=== PATIENT | female | born 2000 | race Two or more races ===

== ENCOUNTER 2025-01-23 15:18 | Inpatient (IN) | payer OTHER ==
[~2025-01-23] VITALS: Ht 160 cm; Wt 62.0 kg
--- NOTE | 2025-01-23 15:27 | ED.PDOC ---
GI ASSESSMENT HPI Comments 25-year-old female brought in from [facility] presents with a chief complaint of abdominal pain x onset Monday (2 days ago). Patient mentions that she started her cycle and thought that the cramps were from that, however, the cramps felt different and were stronger. Patient had a CT scan of her abdomen at [facility] and was confirmed to have Appendicitis. Patient was given Zofran, Morphine, Toradol, Tylenol per transport team. Patient did not receive Cipro per transport team. PMHx: Ovarian Cysts PSHx: None HPI: Poor Historian. REVIEW OF SYSTEMS: CONSTITUTIONAL: Denies acute: fever, diaphoresis, chills, HEAD: Denies acute: headache, photophobia Eyes: Denies acute: Double vision, vision loss, eye pain, eye discharge. EARS: Denies acute: tinnitus, hearing loss, ear discharge, ear pain, THROAT: Denies acute: sore throat, swelling, difficulty swallowing , pain with swallowing, change in voice. NECK: Denies acute: neck pain, neck swelling, stiff neck. HEART: Denies acute : chest pain, palpitations, LUNGS: Denies acute: SOB, wheezing, cough, hemoptysis ABDOMEN: Denies acute: diarrhea, melena , hematemesis, hematochezia SKIN: Denies acute: rash, redness, lesions, itchiness. EXTREMITIES: Denies acute: calf pain, numbness, tingling, weakness, denies pain in extremity. Denies acute: Low back pain. Neuro: Denies acute: focal neurological deficit, motor or sensory focal neurological deficit, tremors, seizure like activity, confusion, dizziness, change in mental status, loss of bowel or bladder function, cauda equina like symptoms. : Denies acute: dysuria, hematuria, flank pain, increase in urinary frequency. PSYCH: Denies acute: hallucination, suicidal ideation, homicidal ideation. FEMALE: Denies acute: abnormal vaginal bleeding, foul odor, unusual discharge. Currently on her menstrual cycle PHYSICAL EXAM: General: ----[id number]----acute distress, awake and alert. Head: normocephalic, atraumatic. Neck: supple, trachea is midline, no swelling. Throat: Normal phonation. Eyes:, no erythema, no purulent discharge, no proptosis, no icterus. Heart: regular rate, regular rhythm, no significant murmur appreciated. Lungs: no apparent respiratory distress, Able to speak in full sentences. No wheezing, no rhonchi, no crackles. No stridors Clear to auscultation bilaterally. Abdomen: Periumbilical tender to palpation, non distended, soft, no guarding, no rebound, + bowel sounds. Neuro: Awake, Alert, oriented to name, self, situation, follows commands GCS=15. Speech is normal. Skin: no petechia, no purpura, no cyanosis, non-pale, not jaundice. Lower extremities: --no - Pitting edema no deformity, no focal swelling, no calf TTP. Makes eye contact. moves all four extremities. Face: no apparent facial droop. ED COURSE: DISCLAIMER: This medical document was created using an electronic medical record system with voice recognition software and computerized dictation system. Although this document has been carefully reviewed, there might still be some phonetic and typographical errors. Occasional wrong-word or "sound-alike" substitutions may have occurred due to the inherent limitations of voice recognition software. These areas are purely typographical due to imperfections of the software pr ograms and do not reflect any compromise in the patient's medical care. Please read the chart carefully and recognize, using context, where these substitutions have occurred. Time Seen by MD: 15:18 Reviewed Notes: Medications, Allergies Allergies: Coded Allergies: Amoxicillin (Verified Allergy, Unknown, 01/23/25) Penicillins (Verified Allergy, Unknown, 01/23/25) Home Meds No Active Prescriptions or Reported Meds Information Source: Patient, Emergency Med Personnel Past Medical History Past Medical History (Other): Ovarian Cyst Surgical History: Denies all surgeries FIRER TUNNEL KILN History: Denies all FIRER TUNNEL KILN Hx Family History Family History: Reviewed,noncontributory to illness Social History Smoker: Non-Smoker Alcohol: Denies ETOH Use Drugs: Denies Drug Use Lives In: Home Was a procedure done? Was a procedure done?: No GI differential Dx Differential Diagnosis: Other (DDX include Diverticulitis, colitis, gastroenteritis, acute abdomen, SBO, enteritis, constipation, volvulus, appendicitis, Gallbladder disease, choledocolithiasis, ascending cholangitis, pancreatitis, intraAbdominal mass/neoplasm, hepatitis, UTI, pylonephritis, kidne y stone, aneurysm, dissection, Inflammatory bowel disease, gastroparesis, ischemic bowel, ovarian torsion, ovarian cyst/mass, tubo-ovarian abscess, , ectopic , PID, STD.) X-Ray, Labs, Meds, VS Vital Signs Date Time Temp Pulse Resp B/P (MAP) Pulse Ox O2 Delivery O2 Flow Rate FiO2 01/23/25 16:30 79 16 97/64 (75) 99 01/23/25 16:00 98.9 92 16 100/58 (72) 99 98.9 01/23/25 15:18 98.5 98 16 102/68 (79) 100 98.5 Lab Test 01/23/25 15:44 Range/Units White Blood Count 7.8 4.4-10.8 10^3/uL Red Blood Count 3.78 L 4.0-5.20 10^6/uL Hemoglobin 11.8 L 12.2-16.2 g/dL Hematocrit 34.4 L 36.0-46.0 % Mean Corpuscular Volume 91.0 80.0-100.0 fL Mean Corpuscular Hemoglobin 31.2 28.0-32.0 pg Mean Corpuscular Hemoglobin Concent 34.2 32.0-36.0 g/dL Red Cell Distribution Width 14.0 11.8-14.3 % Platelet Count 302 140-450 10^3/uL Mean Platelet Volume 8.2 6.9-10.8 fL Neutrophils (%) (Auto) 72.8 37.0-80.0 % Lymphocytes (%) (Auto) 16.5 10.0-50.0 % Monocytes (%) (Auto) 9.8 0.0-12.0 % Eosinophils (%) (Auto) 0.7 0.0-7.0 % Basophils (%) (Auto) 0.2 0.0-2.0 % Neutrophils # (Auto) 5.7 1.6-8.6 10 ^3/uL Lymphocytes # (Auto) 1.3 0.4-5.4 10 ^3/uL Monocytes # (Auto) 0.8 0-1.3 10 ^3/uL Eosinophils # (Auto) 0.1 0-0.8 10 ^3/uL Basophils # (Auto) 0 0-0.2 10 ^3/uL Nucleated Red Blood Cells 0.0 % Prothrombin Time 12.1 H 9.3-11.8 sec Prothrombin Time INR 1.16 H 0.9-1.15 Activated Partial Thromboplast Time 32.2 24.5-34.5 SEC Sodium Level 140 136-145 mmol/L Potassium Level 3.7 3.5-5.1 mmol/L Chloride Level 108 H 98-107 mmol/L Carbon Dioxide Level 18 L 20-31 mmol/L Anion Gap 14 5-15 Blood Urea Nitrogen 6 L 9-23 mg/dL Creatinine 0.80 0.550-1.02 mg/dL Glomerular Filtration Rate Calc 105 >90 mL/min BUN/Creatinine Ratio 7.5 L 10.0-20.0 Serum Glucose 58 L 74-106 mg/dL Lactic Acid Level 0.8 0.4-2.0 mmol/L Calcium Level 8.5 L 8.7-10.4 mg/dL Total Bilirubin 0.4 0.2-1.0 mg/dL Aspartate Amino Transferase (AST) 22 13-40 U/L Alanine Aminotransferase (ALT) 9 7-40 U/L Alkaline Phosphatase 51 46-116 U/L Total Protein 6.8 5.7-8.2 g/dL Albumin 4.4 3.2-4.8 g/dL Lipase 24 12-53 U/L [place] [id number] Ph: [phone] DIAGNOSTIC IMAGING Diagnostic Imaging Report : [id number] Signed PATIENT: BRANDI MARTINEZ: [id number] UNIT: [id number] : 2000 [facility]GE / SEX: 25 / F ADM STATUS: ADM IN SERVICE 1711 ORDERING PHYSICIAN: GREGORIO HAYES PROCEDURE(s): CXR1 - CHEST XRAY 1 VIEW REASON: preop ORDER NUMBER(s): [id number], ACCESSION NUMBER(s): [id number] CHEST RADIOGRAPH Indication: preop Technique: Single frontal view of the chest was obtained Comparison: None FINDINGS: Lines and Tubes: None Lungs: No focal consolidation. Pleura: No effusion. No pneumothorax. Cardiomediastinal contours: Unremarkable Bones: No acute osseous abnormality. IMPRESSION: 1. No acute cardiopulmonary disease. ATED BY: JONATHAN MASSEY Jr., DO DICTATED DATE/TIME: 01/23/251745 SIGNED BY: JONATHAN MASSEY Jr., SIGNED DATE/TIME: 01/23/251745 Time of 1ST Reevaluation: 15:48 Reevaluation 1ST: Unchanged Patient Education/Counseling: Diagnosis, Treatment Family Education/Counseling: No Family Present Comments MDM: patient presented with the above HPI.--abdominal pain---workup was initiated. patient was found with the above mentioned diagnosis. the following medications were ordered: please refer to order lists of meds and tests obtained by myself Dr. Varela. Patient ED course and VS have been stabilized. Patient has been reassessed in the ED and remained in a stable condition. Pertinent incidental findings were discussed with the patient and/or family. Patient/family voices understanding and is agreeable with plan. Patient has been observed in the ED adequate length of time to insure improvement/stability. Escalation of care considered: Consideration of escalation to observation or admission Patient was transferred with the acute appendicitis diagnosis. Patient was found with episode of hypoglycemia. Patient was given dextrose. Patient was ADMITTED to the medicine team for further evaluation and treatment of their presentation. There are multiple orders under my name which I did NOT give such as hydromorphone, phenylephrine, ephedrine, propofol, lidocaine 2%, midazolam, All the reports of any imaging studies that were ordered by myself were reviewed by myself. Departure 1 Departure Time of Disposition: 15:44 Impression: Primary Impression: Acute appendicitis Additional Impression: Hypoglycemia Disposition: ADMITTED INPATIENT Admit to: Tele Condition: Guarded e-Prescriptions No Active Prescriptions or Reported Meds Discharged With: Self Critical Care Note Critical Care Time?: No I personally scribed for BERNABE VARELA DO ([email or web address]) on 01/23/25 at 15:26. Electronically submitted by Kailash Bird ([email or web address]). I personally scribed for BERNABE VARELA DO ([email or web address]) on 01/23/25 at 18:37. Electronically submitted by Kailash Bird ([email or web address]). BERNABE VARELA DO Jan 23, 2025 15:26
[2025-01-23] MEDS: fentaNYL CITRATE 100 MCG/2 ML VL IV ONE ×2 (15:30→16:54)
[2025-01-23 15:57] LABS: Hematocrit 34.4 % (36.0-46.0); Hemoglobin 11.8 g/dL (12.2-16.2); Mean Corpuscular Hemoglobin 31.2 pg (28.0-32.0); Mean Corpuscular Volume 91.0 fL (80.0-100.0); Nucleated Red Blood Cells % 0.0 %
[2025-01-23 16:11] LABS: Albumin 4.4 g/dL (3.2-4.8); Alkaline Phosphatase 51 U/L (46-116); Anion Gap 14 (5-15); BUN/Creatinine Ratio 7.5 (10.0-20.0); Blood Urea Nitrogen 6 mg/dL (9-23); Carbon Dioxide 18 mmol/L (20-31); Chloride 108 mmol/L (98-107); Glucose 58 mg/dL (74-106); Lipase 24 U/L (12-53); Potassium 3.7 mmol/L (3.5-5.1); Sodium 140 mmol/L (136-145); Total Protein 6.8 g/dL (5.7-8.2)
[2025-01-23 16:12] LABS: Alanine Aminotransferase 9 U/L (7-40); Bilirubin, Total 0.4 mg/dL (0.2-1.0); Calcium 8.5 mg/dL (8.7-10.4)
[2025-01-23] MEDS: SODIUM CHLORIDE 0.9% 1,000 ML IV ONE ×2 (16:44→17:28)
[2025-01-23] MEDS: CIPROFLOXACIN 400MG/200ML 200 ML IV ONE (16:44)
[2025-01-23] MEDS: ONDANSETRON HCL 4 MG/2 ML VIAL IV ONE (16:44)
[2025-01-23] MEDS: DEXTROSE (25%) 10 ML SYRG IV ONE (17:00)
--- NOTE | 2025-01-23 17:20 | DVHHP2 ---
History of Present Illness Reason for Visit: Abdominal pain History of Present Illness 25-year-old female presents for evaluation of abdominal pain. Patient was transferred from [facility] after she presented there with a two day history of abdominal pain which starts in her center abdomen and radiates to her right lower quadrant. CT of the abdomen from outside facility showed acute appendicitis therefore she was transferred for higher level of care and surgical consultation. She also reports episodes of nausea with vomiting and headache. Of fever or chills. No other acute complaints. Past Medical History Denies Past Surgical History Denies Family History Noncontributory Smoke: No ALCOHOL: none Drugs: None Review of Systems Review of Systems Review of systems are currently negative otherwise addressed in HPI. Allergies: Coded Allergies: Amoxicillin (Verified Allergy, Unknown, 01/23/25) Penicillins (Verified Allergy, Unknown, 01/23/25) Exam Vital Signs Vital Signs Date Time Temp Pulse Resp B/P (MAP) Pulse Ox O2 Delivery O2 Flow Rate FiO2 01/23/25 16:54 96/55 01/23/25 15:18 98.5 98 16 100 98.5 Exam Gen: 25-year-old female in mild distress Skin: Warm, dry, normal color and texture, no rash. HEENT: Normocephalic atraumatic, mucous membranes moist and pink. Neck: Cervical and supraclavicular nodes normal without enlargement, trachea is midline, thyroid gland is normal without masses. Pulmonary: Clear to auscultation and percussion bilaterally. Cardiac: Regular rate and rhythm. No murmur Abdomen: Soft, right lower quadrant tenderness, nondistended, bowel sounds present all 4 quadrants, no guarding, no rigidity, no organomegaly. Extremities: No cyanosis, clubbing, no edema Neuro: Cranial nerves II through XII grossly intact, normal affect and speech, no focal motor deficits. Labs/Xrays Labs Test 01/23/25 15:44 Range/Units White Blood Count 7.8 4.4-10.8 10^3/uL Red Blood Count 3.78 L 4.0-5.20 10^6/uL Hemoglobin 11.8 L 12.2-16.2 g/dL Hematocrit 34.4 L 36.0-46.0 % Mean Corpuscular Volume 91.0 80.0-100.0 fL Mean Corpuscular Hemoglobin 31.2 28.0-32.0 pg Mean Corpuscular Hemoglobin Concent 34.2 32.0-36.0 g/dL Red Cell Distribution Width 14.0 11.8-14.3 % Platelet Count 302 140-450 10^3/uL Mean Platelet Volume 8.2 6.9-10.8 fL Neutrophils (%) (Auto) 72.8 37.0-80.0 % Lymphocytes (%) (Auto) 16.5 10.0-50.0 % Monocytes (%) (Auto) 9.8 0.0-12.0 % Eosinophils (%) (Auto) 0.7 0.0-7.0 % Basophils (%) (Auto) 0.2 0.0-2.0 % Neutrophils # (Auto) 5.7 1.6-8.6 10 ^3/uL Lymphocytes # (Auto) 1.3 0.4-5.4 10 ^3/uL Monocytes # (Auto) 0.8 0-1.3 10 ^3/uL Eosinophils # (Auto) 0.1 0-0.8 10 ^3/uL Basophils # (Auto) 0 0-0.2 10 ^3/uL Nucleated Red Blood Cells 0.0 % Sodium Level 140 136-145 mmol/L Potassium Level 3.7 3.5-5.1 mmol/L Chloride Level 108 H 98-107 mmol/L Carbon Dioxide Level 18 L 20-31 mmol/L Anion Gap 14 5-15 Blood Urea Nitrogen 6 L 9-23 mg/dL Creatinine 0.80 0.550-1.02 mg/dL Glomerular Filtration Rate Calc 105 >90 mL/min BUN/Creatinine Ratio 7.5 L 10.0-20.0 Serum Glucose 58 L 74-106 mg/dL Lactic Acid Level 0.8 0.4-2.0 mmol/L Calcium Level 8.5 L 8.7-10.4 mg/dL Total Bilirubin 0.4 0.2-1.0 mg/dL Aspartate Amino Transferase (AST) 22 13-40 U/L Alanine Aminotransferase (ALT) 9 7-40 U/L Alkaline Phosphatase 51 46-116 U/L Total Protein 6.8 5.7-8.2 g/dL Albumin 4.4 3.2-4.8 g/dL Lipase 24 12-53 U/L SEPSIS Sepsis Screen Date sepsis recognized/suspect: Jan 23, 2025 Time Sepsis recognized/suspect: 1518 Recent Procedure: No On Antibiotic Therapy: Yes Respiratory Rate >20: No Heart Rate >90: Yes Temp<36 C (96.8 F) or >38.3 C: No SBP <90 or MAP <65 mmHG: No New Acute Mental Status Change: No Is the patient on CPAP, BIPAP,: No Physician Orders Evp Operations (01/23/25 ) Electrocardigram (01/23/25 15:22) * Surgical Consult (01/23/25 ) Admit (01/23/25 16:41) Levofloxacin Levaquin (01/24/25 10:00) Metronidazole Ivpb Flagyl (01/23/25 22:00) NS (01/23/25 17:15) Pantoprazole (Protonix) (01/24/25 10:00) Pantoprazole (Protonix) (01/23/25 17:15) PTPTT (01/23/25 17:11) Type And Screen (01/23/25 17:11) Chest Xray 1 View (01/23/25 17:11) Basic Metabolic Panel (01/24/25 04:00) Ondansetron Hcl (Zofran) (01/23/25 17:15) Complete Blood Count (01/24/25 04:00) Npo (Nothing By Mouth) Diet (01/23/25 Dinner) Condition: Stable (01/23/25 17:11) Bedrest With Bathroom Privileg (01/23/25 17:11) Morphine Sulfate Injection (01/23/25 17:15) Vital Signs Date Time Temp Pulse Resp B/P (MAP) Pulse Ox O2 Delivery O2 Flow Rate FiO2 01/23/25 16:54 96/55 01/23/25 15:18 98.5 98 16 102/68 (79) 100 98.5 Laboratory Tests Test 01/23/25 15:44 Lactic Acid Level 0.8 mmol/L (0.4-2.0) White Blood Count 7.8 10^3/uL (4.4-10.8) Medications Medications Dose Ordered Sig/Ildefonso Route Start Time Stop Time Status Last Admin Dose Admin Ciprofloxacin 200 ml @ 200 mls/hr ONCE ONCE IV 01/23/25 15:30 01/23/25 16:29 DC 01/23/25 16:44 200 MLS/HR Dextrose 10 ml ONCE ONCE IV 01/23/25 16:45 01/23/25 16:46 DC 01/23/25 17:00 10 ML Ondansetron HCl 4 mg ONCE ONCE IV 01/23/25 16:15 01/23/25 16:16 DC 01/23/25 16:44 4 MG Sodium Chloride 1,000 ml @ 1,000 mls/hr Q1H ONCE IV 01/23/25 15:30 01/23/25 16:29 DC 01/23/25 16:44 1,000 MLS/HR Assessment/Plan Assessment/Plan Assessment Acute abdominal pain Acute appendicitis Plan Admit the patient to [facility] to the hospitalist Surgical consultation placed by ER provider awaiting callback NPO Maintenance IV fluids Pain management Continue treatment per orders. Plan discussed with: Patient My Orders Orders - GREGORIO HAYES Procedure Category Date Status Time Admit ADMIT 01/23/25 Transmitted 16:41 Levofloxacin Levaquin PHA 01/24/25 Transmitted 10:00 Metronidazole Ivpb PHA 01/23/25 Transmitted Flagyl 22:00 NS PHA 01/23/25 Transmitted 17:15 Pantoprazole PHA 01/24/25 Transmitted (Protonix) 10:00 Pantoprazole PHA 01/23/25 Transmitted (Protonix) 17:15 PTPTT LAB 01/23/25 Transmitted 17:11 Type And Screen BBK 01/23/25 Transmitted 17:11 Chest Xray 1 View XY 01/23/25 Transmitted 17:11 Basic Metabolic Panel LAB 01/24/25 Verified 04:00 Ondansetron Hcl PHA 01/23/25 Transmitted (Zofran) 17:15 Complete Blood Count LAB 01/24/25 Verified 04:00 Npo (Nothing By DIET 01/23/25 Transmitted Mouth) Diet Dinner Condition: Stable GARCIA 01/23/25 In Process 17:11 Bedrest With Bathroom GARCIA 01/23/25 In Process Privileg 17:11 Morphine Sulfate PHA 01/23/25 Transmitted Injection 17:15 Date of Service: Jan 23, 2025 Billing Provider: GREGORIO HAYES Common Visit Codes: [id number] INP/OBS CARE (HIGH) GREGORIO HAYES Jan 23, 2025 17:20
[2025-01-23] MEDS: PANTOPRAZOLE 40 MG/10 ML VIAL INJ IV ONE (17:29)
[2025-01-23] MEDS: DEXTROSE (50%) 50ML SYRG IV ONE (17:39)
--- NOTE | 2025-01-23 17:48 | DVH ---
CHEST RADIOGRAPH Indication: preop Technique: Single frontal view of the chest was obtained Comparison: None FINDINGS: Lines and Tubes: None Lungs: No focal consolidation. Pleura: No effusion. No pneumothorax. Cardiomediastinal contours: Unremarkable Bones: No acute osseous abnormality. IMPRESSION: 1. No acute cardiopulmonary disease.
[2025-01-23 17:52] LABS: INR 1.16 (0.9-1.15); Partial Thromboplastin Time 32.2 SEC (24.5-34.5); Prothrombin Time 12.1 sec (9.3-11.8)
[2025-01-23 19:08] VITALS: PULSE 85; RESP 16; O2SAT 99
[2025-01-23 20:22] LABS: Urine Protein, UAD TRACE (Negative)
[2025-01-23 20:48] VITALS: PULSE 61; RESP 18; O2SAT 99
[2025-01-23] MEDS: MORPHINE SULFATE INJ 2 MG/ml SYRG IV PRN (22:07)
[2025-01-23 22:25] VITALS: BP 114/69; PULSE 74; RESP 16; TEMP 98; O2SAT 98
[2025-01-24] VITALS (8 sets, daily range): BP systolic 94–111; BP diastolic 57–76; PULSE 82–99; RESP 16–19; TEMP 97.6–99; O2SAT 97–100
[2025-01-24 06:52] LABS: Hematocrit 30.0 % (36.0-46.0); Hemoglobin 10.3 g/dL (12.2-16.2); Mean Corpuscular Hemoglobin 30.9 pg (28.0-32.0); Mean Corpuscular Volume 90.2 fL (80.0-100.0); Nucleated Red Blood Cells % 0.0 %
[2025-01-24 06:53] LABS: Anion Gap 12 (5-15); Potassium 3.9 mmol/L (3.5-5.1); Sodium 140 mmol/L (136-145)
[2025-01-24 06:54] LABS: Carbon Dioxide 19 mmol/L (20-31); Chloride 109 mmol/L (98-107)
[2025-01-24 06:55] LABS: Calcium 8.6 mg/dL (8.7-10.4)
[2025-01-24 07:00] LABS: BUN/Creatinine Ratio 5.8 (10.0-20.0); Blood Urea Nitrogen < 5 mg/dL (9-23); Glucose 60 mg/dL (74-106)
[2025-01-24] MEDS ORDERED: IOHEXOL 300 MG/ML 100ML BOTTLE IJ ONE (08:59)
[2025-01-24] MEDS: PANTOPRAZOLE 40 MG/10 ML VIAL INJ IV SCH (10:05)
[2025-01-24] MEDS: ONDANSETRON HCL 4 MG/2 ML VIAL IV PRN (11:51)
[2025-01-24] MEDS ORDERED: MIDAZOLAM HCL 2MG/2ML 2ml VIAL (1mg/ml) ONE (13:07)
[2025-01-24] MEDS ORDERED: ONDANSETRON HCL 4 MG/2 ML VIAL ONE (13:07)
[2025-01-24] MEDS ORDERED: METOCLOPRAMIDE HCL 5MG/ml INJ 2ml VIAL ONE (13:07)
[2025-01-24] MEDS ORDERED: fentaNYL CITRATE 100 MCG/2 ML VL ONE (13:07)
[2025-01-24] MEDS ORDERED: LIDOCAINE 2% (LOCAL ANESTH.) PF 5ml SDV ONE (13:07)
--- NOTE | 2025-01-24 13:07 | DVHINCON2 ---
Date of service: Jan 24, 2025 History of Present Illness 25-year-old otherwise healthy female complaining of two day history of periumbilical pain now radiating to her right lower quadrant with nausea. Patient had a CT of the abdomen and pelvis at an outside facility which showed acute appendicitis and was transferred over to [facility] for further care. Past Medical History None Past Surgical History None Family History: Cardiovascular disease G8 MOTHER G8 FATHER Family History Noncontributory Social History Denies alcohol, tobacco, IV drug use Allergies: Coded Allergies: Amoxicillin (Verified Allergy, Unknown, 01/23/25) Penicillins (Verified Allergy, Unknown, 01/23/25) Home Meds No Active Prescriptions or Reported Meds Current Medications Current Medications Medications (Trade) Dose Ordered Sig/Ildefonso Route PRN Reason Start Time Stop Time Status Last Admin Levofloxacin/ Dextrose 100 ml @ 100 mls/hr DAILY IV 01/24/25 10:00 01/24/25 10:05 Metronidazole 100 ml @ 100 mls/hr Q8HR IV 01/23/25 22:00 01/24/25 04:59 Pantoprazole Sodium (Protonix) 40 mg DAILY IV 01/24/25 10:00 01/24/25 10:05 Ondansetron HCl (Zofran) 4 mg Q4HP PRN IV NAUSEA / VOMITING 01/23/25 17:15 01/24/25 11:51 Morphine Sulfate 2 mg Q4HPRN PRN IV SEVERE PAIN (7-10 PAIN SCALE) 01/23/25 17:15 01/23/25 22:07 Vital Signs Vital Signs Date Time Temp Pulse Resp B/P (MAP) Pulse Ox O2 Delivery O2 Flow Rate FiO2 01/24/25 13:03 99.0 83 16 94/58 (70) 100 99.0 01/24/25 08:00 Room Air* 0 21 Physical Exam GEN: Age-appropriate female in no acute distress. Alert. HEENT: Normocephalic atraumatic. Moist mucous membranes. Anicteric sclerae. CV: RRR Respiratory: CTAB ABD: Localized right lower quadrant tenderness to palpation with localized guarding. Nondistended. CT of the abdomen and pelvis: Consistent with acute appendicitis Labs/Diagnostic Data Labs Test 01/24/25 05:22 01/23/25 20:07 01/23/25 15:44 Range/Units White Blood Count 6.7 4.4-10.8 10^3/uL Red Blood Count 3.32 L 4.0-5.20 10^6/uL Hemoglobin 10.3 L 12.2-16.2 g/dL Hematocrit 30.0 #L 36.0-46.0 % Mean Corpuscular Volume 90.2 80.0-100.0 fL Mean Corpuscular Hemoglobin 30.9 28.0-32.0 pg Mean Corpuscular Hemoglobin Concent 34.2 32.0-36.0 g/dL Red Cell Distribution Width 13.7 11.8-14.3 % Platelet Count 280 140-450 10^3/uL Mean Platelet Volume 8.3 6.9-10.8 fL Neutrophils (%) (Auto) 66.9 37.0-80.0 % Lymphocytes (%) (Auto) 16.2 10.0-50.0 % Monocytes (%) (Auto) 14.4 H 0.0-12.0 % Eosinophils (%) (Auto) 2.2 0.0-7.0 % Basophils (%) (Auto) 0.3 0.0-2.0 % Neutrophils # (Auto) 4.5 1.6-8.6 10 ^3/uL Lymphocytes # (Auto) 1.1 0.4-5.4 10 ^3/uL Monocytes # (Auto) 1.0 0-1.3 10 ^3/uL Eosinophils # (Auto) 0.1 0-0.8 10 ^3/uL Basophils # (Auto) 0 0-0.2 10 ^3/uL Nucleated Red Blood Cells 0.0 % Sodium Level 140 136-145 mmol/L Potassium Level 3.9 3.5-5.1 mmol/L Chloride Level 109 H 98-107 mmol/L Carbon Dioxide Level 19 L 20-31 mmol/L Anion Gap 12 5-15 Blood Urea Nitrogen < 5 L 9-23 mg/dL Creatinine 0.86 0.550-1.02 mg/dL Glomerular Filtration Rate Calc 96 >90 mL/min BUN/Creatinine Ratio 5.8 L 10.0-20.0 Serum Glucose 60 L 74-106 mg/dL Calcium Level 8.6 L 8.7-10.4 mg/dL Beta HCG, Quantitative < 1.5 L 1.5-4.2 mIU/mL Urine Color Light-yellow Yellow Urine Clarity Clear Clear Urine pH 6.0 5.0-9.0 Urine Specific [place] > 1.050 H 1.001-1.035 Urine Protein Trace H Negative Urine Ketones 4+ H Negative Urine Blood 2+ H Negative /uL Urine Nitrite Negative Negative Urine Bilirubin Negative Negative Urine Urobilinogen Normal Negative mg/dL Urine Leukocyte Esterase Negative Negative /uL Urine RBC <1 0 - 4 /hpf Urine Microscopic WBC 4 0-5 /HPF Urine Squamous Epithelial Cells Few <5 /hpf Urine Bacteria None seen None Seen /hpf Urine Mucus Few None Seen Urine Glucose 1+ H Normal mg/dL Prothrombin Time 12.1 H 9.3-11.8 sec Prothrombin Time INR 1.16 H 0.9-1.15 Activated Partial Thromboplast Time 32.2 24.5-34.5 SEC Lactic Acid Level 0.8 0.4-2.0 mmol/L Total Bilirubin 0.4 0.2-1.0 mg/dL Aspartate Amino Transferase (AST) 22 13-40 U/L Alanine Aminotransferase (ALT) 9 7-40 U/L Alkaline Phosphatase 51 46-116 U/L Total Protein 6.8 5.7-8.2 g/dL Albumin 4.4 3.2-4.8 g/dL Lipase 24 12-53 U/L Assessment 1. Acute appendicitis Plan/Recommendation 1. Laparoscopic appendectomy possible open surgery Informed consent: The surgery and its risks including but not limited to infection, bleeding requiring possible blood transfusion with the risk of hepatitis or HIV infection, possible open surgery, possible cystic duct leak or retained common bile duct stone requiring further intervention such as an ERCP, possible perioperative [place] or stroke were explained to the patient. All questions were answered to her satisfaction. She expressed verbal understanding and wished to proceed with the surgery. Plan discussed with: Patient JUAN PABLO HOPKINS MD Jan 24, 2025 13:07
[2025-01-24] MEDS ORDERED: PROPOFOL 10 MG/ML 20 ML IV ONE (13:08)
[2025-01-24] MEDS ORDERED: PHENYLEPHRINE HCL 10 MG/ML VL ONE (13:24)
[2025-01-24] MEDS: LIDOCAINE W/ EPINEPHRINE 1% 20ML VIAL ONE (13:38)
[2025-01-24] MEDS ORDERED: SUGAMMADEX 200mg/2ml Vial (100MG/ML) IV ONE (13:41)
--- NOTE | 2025-01-24 14:06 | DVHOP2 ---
Operative Report - 2 Report Details Date: 01/24/25 Preop Diagnosis: 1. Acute appendicitis Postop Diagnosis: 1. Acute appendicitis 2. Left hemorrhagic cyst Surgeon: Juan Pablo Gutierres MD Resolution Manager: None Anesthesiologist: Lul Leahy CRNA Anesthesia: General, Local Drains: None Consent: The surgery and its risks including but not limited to infection, bleeding requiring possible blood transfusion with the risk of hepatitis or HIV infection, possible open surgery, possibility that the abdominal pain is caused by different intra-abdominal pathology other than acute appendicitis in which case we will proceed with the appendectomy if it is safe to do so and then treat the problem according to intraoperative findings, possible perioperative NV or stroke were explained to the patient. All questions were answered to her satisfaction. She expressed verbal understanding and wished to proceed with the surgery. Complications: None Estimated Blood Loss: 10 mL Fluids: 800 mL Name of Procedure Performed Laparoscopic appendectomy Procedure Details Procedure Details: After induction of general anesthesia, a Jung catheter was placed by the OR nursing staff. Patient's abdomen was then prepped and draped in standard surgical fashion. A small infraumbilical incision was made and this incision was taken through the abdominal wall down to the fascia which was opened sharply. Peritoneum was then bluntly divided gaining access to the intra- abdominal cavity. Interrupted 0 Vicryl sutures were placed through the fascial incision and using an open technique, Radha trocar was introduced and secured using the Vicryl sutures. Abdomen was insufflated to 15 mmHg and camera was inserted. Visual examination of the intestine under the fascial incision appeared without injury however there was diffuse blood-stained peritoneal cavity in all four quadrants especially in the bilateral lower quadrants suspicious for possible hemorrhagic cyst. A 5 mm bladeless trocar was placed in the left lower quadrant and a 2nd 5 mm bladeless trocar was placed in the suprapubic region both under direct visualization. Examination of the right lower quadrant revealed dilated inflamed appendix without perforation. Minimal dissection was performed to free up the base of the appendix and using a endo stapler base of the appendix and the mesoappendix were stapled and divided without complication. The appendix was then removed from the abdominal cavity using an endo pouch bag and sent off the surgical field. Abdomen was then re- insufflated and staple line was examined which appeared intact without bleeding or leaks. Examination was then turned towards the pelvis the right ovary was identified which appeared normal. Patient had a hemorrhagic cyst of the left ovary without active bleeding. The pelvic area was then well irrigated until f luid was clear. Trocars were then removed under direct visualization as the abdomen was deflated. Additional interrupted 0 Vicryl sutures were placed through the infraumbilical fascial incision and the sutures were tied down closing off the infraumbilical fascia. Surgical sites were irrigated injected with 15 mL of 1% lidocaine with epinephrine. Skin incisions were closed using 4-0 Monocryl sutures in subcuticular fashion. Surgical sites were cleaned and dried and dressings were applied. Sponge, needle, instrument count at the end of the case were reported to be correct by the nursing staff. The patient tolerated procedure well and at the time of dictation she is being awakened from general anesthesia. Specimen: Appendix Condition Stable Disposition Still a Patient JUAN PABLO GUTIERRES MD Jan 24, 2025 14:06
[2025-01-24] MEDS ORDERED: HYDROmorphone HCL 2 MG/ML VL/or syr IV PRN (14:15)
[2025-01-24] MEDS: HYDROmorphone HCL 2 MG/ML VL/or syr ONE (14:35)
--- NOTE | 2025-01-24 15:44 | DVHPN2 ---
Subjective Patient is status post OR. Improving. Some pain with procedure controlling with p.r.n. medications. Reviewed: H&P Changes from previous H/P or p: No Changes General: Per HPI Objective Vitals Vital Signs Date Time Temp Pulse Resp B/P (MAP) Pulse Ox O2 Delivery O2 Flow Rate FiO2 01/24/25 14:55 97 13 126/75 (92) 98 01/24/25 14:03 97.2 97.2 01/24/25 08:00 Room Air* 0 21 Intake/Output Intake and Output 01/24/25 07:00 Intake Total 1400 ml Output Total 500 ml Balance 900 ml Intake Oral 0 ml IV Total 1400 ml Output Urine Total 500 ml Exam GEN: Healthy appearing, well-developed, NAD. HEENT: NC/AT; MMM. CV: RRR, no m/r/g. LUNGS: CTAB, no w/r/c. ABD: Soft, NT/ND, NBS, no masses or organomegaly. Lap appy inches in scars laparoscopic incisions are CDI. EXT: skin Warm, well perfused. no rashes. No clubbing, cyanosis, or edema. NEURO: Ambulating with no limitations. No focal deficits. Medications Current Medications Medications Dose Ordered Sig/Ildefonso Route Start Time Stop Time Status Last Admin Dose Admin Levofloxacin/ Dextrose 100 ml @ 100 mls/hr DAILY IV 01/24/25 10:00 01/24/25 10:05 100 MLS/HR Metronidazole 100 ml @ 100 mls/hr Q8HR IV 01/23/25 22:00 01/24/25 04:59 100 MLS/HR Pantoprazole Sodium 40 mg DAILY IV 01/24/25 10:00 01/24/25 10:05 40 MG Ondansetron HCl 4 mg Q4HP PRN IV 01/23/25 17:15 01/24/25 11:51 4 MG Morphine Sulfate 2 mg Q4HPRN PRN IV 01/23/25 17:15 01/23/25 22:07 2 MG Laboratory Results Laboratory Tests 01/24/25 05:22 Chemistry Test 01/23/25 15:44 01/24/25 05:22 Albumin 4.4 g/dL (3.2-4.8) Calcium Level 8.5 mg/dL (8.7-10.4) L 8.6 mg/dL (8.7-10.4) L Total Protein 6.8 g/dL (5.7-8.2) Coagulation Test 01/23/25 15:44 Prothrombin Time 12.1 sec (9.3-11.8) H Prothrombin Time INR 1.16 (0.9-1.15) H Activated Partial Thromboplast Time 32.2 SEC (24.5-34.5) Lipid panel Test 01/23/25 15:44 Lipase 24 U/L (12-53) LFT Test 01/23/25 15:44 Alanine Aminotransferase (ALT) 9 U/L (7-40) Alkaline Phosphatase 51 U/L (46-116) Aspartate Amino Transferase (AST) 22 U/L (13-40) Total Bilirubin 0.4 mg/dL (0.2-1.0) Urinalysis Test 01/23/25 20:07 Urine Color Light-yellow (Yellow) Urine Clarity Clear (Clear) Urine pH 6.0 (5.0-9.0) Urine Specific [place] > 1.050 (1.001-1.035) Urine Protein Trace (Negative) H Urine Ketones 4+ (Negative) H Urine Blood 2+ /uL (Negative) H Urine Nitrite Negative (Negative) Urine Bilirubin Negative (Negative) Urine Urobilinogen Normal mg/dL (Negative) Urine Leukocyte Esterase Negative /uL (Negative) Urine RBC <1 /hpf (0 - 4) Urine Microscopic WBC 4 /HPF (0-5) Urine Squamous Epithelial Cells Few /hpf (<5) Urine Bacteria None seen /hpf (None Seen) Urine Mucus Few (None Seen) Urine Glucose 1+ mg/dL (Normal) H Labs and/or images reviewed: Labs reviewed by me, Image(s) reviewed by me Assessment/Plan Assessment/Plan 25-year-old female presents for evaluation of abdominal pain. Patient was transferred from [facility] after she presented there with a two day history of abdominal pain which starts in her center abdomen and radiates to her right lower quadrant. CT of the abdomen from outside facility showed acute appendicitis therefore she was transferred for higher level of care and surgical consultation. She also reports episodes of nausea with vomiting and headache. Of fever or chills. No other acute complaints. 01/24- [facility] head found appendicitis. Patient is stabilized over here, surgery was consulted and patient was taken to OR today. She is postop day 0 today. When patient came in patient has tachycardia, low blood pressures meeting sepsis criteria per sepsis sulfa score 2. We will continue to control pain and defer diet orders to surgery. Continue IV antibiotics. Diagnosis: Sepsis, sepsis 3 criteria, sofa score 2, due to below Acute appendicitis , SP laparoscopic appendectomy 01/24/2025 Acute intractable abdominal pain, requiring IV pain control P.o. intolerance Tachycardia Hypotension Intravascular volume depletion Starvation ketosis Microscopic hematuria Anemia, normocytic -continue IV antibiotics -appreciate surgical recommendations and follow up -defer diet and advancing to surgery - low threshold for blood cultures -prn pain control with goal to pain toleration at mild -maintenance IV fluids Diet NPO DVT prophylaxis-Lovenox GI prophylaxis Protonix IV daily Med surge Full code Plan discussed with: Patient My Orders Orders - JOHN BOSCH MD Procedure Category Date Status Time * Surgical Consult CONS 01/24/25 Transmitted 12:45 Date of Service: Jan 24, 2025 Billing Provider: JOHN BOSCH MD Common Visit Codes: [id number] INP/OBS CARE(HIGH) JOHN BOSCH MD Jan 24, 2025 15:44
[2025-01-24] MEDS: ONDANSETRON HCL 4 MG/2 ML VIAL IV ONE (20:40)
[2025-01-25] VITALS (8 sets, daily range): BP systolic 101–132; BP diastolic 55–83; PULSE 70–87; RESP 16–18; TEMP 91.8–98.2; O2SAT 94–99
[2025-01-25 08:23] LABS: Hematocrit 31.7 % (36.0-46.0); Hemoglobin 10.7 g/dL (12.2-16.2); Mean Corpuscular Hemoglobin 30.8 pg (28.0-32.0); Mean Corpuscular Volume 91.4 fL (80.0-100.0); Nucleated Red Blood Cells % 0.1 %
[2025-01-25 08:29] LABS: Albumin 4.1 g/dL (3.2-4.8); Anion Gap 15 (5-15); Calcium 9.2 mg/dL (8.7-10.4); Potassium 4.0 mmol/L (3.5-5.1); Sodium 138 mmol/L (136-145); Total Protein 6.3 g/dL (5.7-8.2)
[2025-01-25 08:30] LABS: Alanine Aminotransferase < 9 U/L (7-40); Alkaline Phosphatase 44 U/L (46-116); BUN/Creatinine Ratio 5.7 (10.0-20.0); Bilirubin, Total 0.2 mg/dL (0.2-1.0); Blood Urea Nitrogen < 5 mg/dL (9-23); Carbon Dioxide 15 mmol/L (20-31); Chloride 108 mmol/L (98-107); Glucose 61 mg/dL (74-106)
--- NOTE | 2025-01-25 11:57 | DVHPN2 ---
Subjective Patient is status post OR. Improving. Some pain with procedure controlling with p.r.n. medications. Reviewed: H&P Changes from previous H/P or p: No Changes General: Per HPI Objective Vitals Vital Signs Date Time Temp Pulse Resp B/P (MAP) Pulse Ox O2 Delivery O2 Flow Rate FiO2 01/25/25 10:22 70 16 132/83 01/25/25 08:37 98.2 98 98.2 01/24/25 19:30 Room Air* 0 21 Intake/Output Intake and Output 01/25/25 07:00 Intake Total 400 ml Output Total 145 ml Balance 255 ml Intake Oral 0 ml IV Total 400 ml Output Urine Total 145 ml # Voids 4 Exam GEN: Healthy appearing, well-developed, NAD. HEENT: NC/AT; MMM. CV: RRR, no m/r/g. LUNGS: CTAB, no w/r/c. ABD: Soft, NT/ND, NBS, no masses or organomegaly. Lap appy inches in scars laparoscopic incisions are CDI. EXT: skin Warm, well perfused. no rashes. No clubbing, cyanosis, or edema. NEURO: Ambulating with no limitations. No focal deficits. Medications Current Medications Medications Dose Ordered Sig/Ildefonso Route Start Time Stop Time Status Last Admin Dose Admin Levofloxacin/ Dextrose 100 ml @ 100 mls/hr DAILY IV 01/24/25 10:00 01/25/25 10:21 100 MLS/HR Metronidazole 100 ml @ 100 mls/hr Q8HR IV 01/23/25 22:00 01/25/25 05:47 100 MLS/HR Pantoprazole Sodium 40 mg DAILY IV 01/24/25 10:00 01/25/25 10:21 40 MG Ondansetron HCl 4 mg Q4HP PRN IV 01/23/25 17:15 01/24/25 17:46 4 MG Morphine Sulfate 2 mg Q4HPRN PRN IV 01/23/25 17:15 01/25/25 10:22 2 MG Laboratory Results Laboratory Tests 01/25/25 05:57 Chemistry Test 01/25/25 05:57 Albumin 4.1 g/dL (3.2-4.8) Calcium Level 9.2 mg/dL (8.7-10.4) Total Protein 6.3 g/dL (5.7-8.2) LFT Test 01/25/25 05:57 Alanine Aminotransferase (ALT) < 9 U/L (7-40) Alkaline Phosphatase 44 U/L (46-116) L Aspartate Amino Transferase (AST) 22 U/L (13-40) Total Bilirubin 0.2 mg/dL (0.2-1.0) Urinalysis Test 01/23/25 20:07 Urine Color Light-yellow (Yellow) Urine Clarity Clear (Clear) Urine pH 6.0 (5.0-9.0) Urine Specific [place] > 1.050 (1.001-1.035) Urine Protein Trace (Negative) H Urine Ketones 4+ (Negative) H Urine Blood 2+ /uL (Negative) H Urine Nitrite Negative (Negative) Urine Bilirubin Negative (Negative) Urine Urobilinogen Normal mg/dL (Negative) Urine Leukocyte Esterase Negative /uL (Negative) Urine RBC <1 /hpf (0 - 4) Urine Microscopic WBC 4 /HPF (0-5) Urine Squamous Epithelial Cells Few /hpf (<5) Urine Bacteria None seen /hpf (None Seen) Urine Mucus Few (None Seen) Urine Glucose 1+ mg/dL (Normal) H Labs and/or images reviewed: Labs reviewed by me, Image(s) reviewed by me Assessment/Plan Assessment/Plan 25-year-old female presents for evaluation of abdominal pain. Patient was transferred from [facility] after she presented there with a two day history of abdominal pain which starts in her center abdomen and radiates to her right lower quadrant. CT of the abdomen from outside facility showed acute appendicitis therefore she was transferred for higher level of care and surgical consultation. She also reports episodes of nausea with vomiting and headache. Of fever or chills. No other acute complaints. 01/24- [facility] head found appendicitis. Patient is stabilized over here, surgery was consulted and patient was taken to OR today. She is postop day 0 today. When patient came in patient has tachycardia, low blood pressures meeting sepsis criteria per sepsis sulfa score 2. We will continue to control pain and defer diet orders to surgery. Continue IV antibiotics. 01/25: Patient doing well. No known from surgery yet, we will contact, if cleared we will likely DC today. Diagnosis: Sepsis, sepsis 3 criteria, sofa score 2, due to below Acute appendicitis , SP laparoscopic appendectomy 01/24/2025 Acute intractable abdominal pain, requiring IV pain control P.o. intolerance Tachycardia Hypotension Intravascular volume depletion Starvation ketosis Microscopic hematuria Anemia, normocytic -continue IV antibiotics -appreciate surgical recommendations and follow up -defer diet and advancing to surgery - low threshold for blood cultures -prn pain control with goal to pain toleration at mild -maintenance IV fluids Diet NPO DVT prophylaxis-Lovenox GI prophylaxis Protonix IV daily Med surge Full code Plan discussed with: Patient My Orders Orders - JOHN BOSCH MD Procedure Category Date Status Time * Surgical Consult CONS 01/24/25 Transmitted 12:45 Date of Service: Jan 25, 2025 Billing Provider: OJHN BOSCH MD Common Visit Codes: [id number] INP/OBS CARE(HIGH) JOHN BOSCH MD Jan 25, 2025 11:57
--- NOTE | 2025-01-25 14:18 | DVHPN2 ---
Progress Note - Dictate Date Seen: Jan 25, 2025 Medical Necessity Reason Pt with a Central, PICC or Fol: No Subjective E: no major events o/n. c/o incisional pain. vital signs Vital Sign Date Time Temp Pulse Resp B/P (MAP) Pulse Ox O2 Delivery O2 Flow Rate FiO2 01/25/25 13:00 97.7 84 16 113/77 (89) 99 97.7 01/25/25 08:00 Room Air* 0 21 Total Intake and Output 01/24/25 01/24/25 01/25/25 15:00 23:00 07:00 Intake Total 200 ml 100 ml 100 ml Output Total 145 ml Balance 55 ml 100 ml 100 ml medications Current Medications Medications Dose Ordered Sig/Ildefonso Route Start Time Stop Time Status Last Admin Dose Admin Levofloxacin/ Dextrose 100 ml @ 100 mls/hr DAILY IV 01/24/25 10:00 01/25/25 10:21 100 MLS/HR Metronidazole 100 ml @ 100 mls/hr Q8HR IV 01/23/25 22:00 01/25/25 05:47 100 MLS/HR Pantoprazole Sodium 40 mg DAILY IV 01/24/25 10:00 01/25/25 10:21 40 MG Ondansetron HCl 4 mg Q4HP PRN IV 01/23/25 17:15 01/24/25 17:46 4 MG Morphine Sulfate 2 mg Q4HPRN PRN IV 01/23/25 17:15 01/25/25 10:22 2 MG objective GEN: NAD ABD: surgical dressings clean and dry. laboratory and microbiology Laboratory Tests 01/25/25 05:57 Test 01/25/25 05:57 Range/Units Serum Glucose 61 L 74-106 mg/dL Assessment/Plan A: 1. s/p lap appendectomy POD #1 improving. 2. ruptured left hemorrhagic ovarian cyst P: 1. stable from surgery POV 2. remove top bandages tomorrow. Leave steristrips on. OK to shower and get incisions wet tomorrow. 3. f/u next week. call [phone] for fu appt. Plan discussed with: Patient JUAN PABLO HOPKINS MD Jan 25, 2025 14:18
[2025-01-26] VITALS (7 sets, daily range): BP systolic 109–134; BP diastolic 69–90; PULSE 51–78; RESP 16–20; TEMP 97.5–98.4; O2SAT 98–100
[2025-01-26 06:41] LABS: Anion Gap 13 (5-15); Carbon Dioxide 21 mmol/L (20-31); Chloride 105 mmol/L (98-107); Sodium 139 mmol/L (136-145)
[2025-01-26 06:43] LABS: Calcium 9.5 mg/dL (8.7-10.4)
[2025-01-26 06:45] LABS: Potassium 3.5 mmol/L (3.5-5.1)
[2025-01-26 06:50] LABS: BUN/Creatinine Ratio 6.4 (10.0-20.0); Blood Urea Nitrogen < 5 mg/dL (9-23); Glucose 73 mg/dL (74-106)
[2025-01-26] MEDS ORDERED: AUG875T PO (15:44)
[2025-01-26] MEDS ORDERED: HYDR-4902 PO (15:44)
[2025-01-26] MEDS ORDERED: ZOFR4T PO (15:44)
--- NOTE | 2025-01-26 15:49 | DVHPN2 ---
Progress Note - Dictate Date Seen: Jan 26, 2025 Medical Necessity Reason Pt with a Central, PICC or Fol: No Subjective E: no major events o/n. feels better. ready to go home. vital signs Vital Sign Date Time Temp Pulse Resp B/P (MAP) Pulse Ox O2 Delivery O2 Flow Rate FiO2 01/26/25 13:00 97.6 55 16 113/69 (84) 98 97.6 01/26/25 07:52 Room Air* 0 21 Total Intake and Output 01/25/25 01/25/25 01/26/25 15:00 23:00 07:00 Intake Total 100 ml 900 ml 600 ml Balance 100 ml 900 ml 600 ml medications Current Medications Medications Dose Ordered Sig/Ildefonso Route Start Time Stop Time Status Last Admin Dose Admin Levofloxacin/ Dextrose 100 ml @ 100 mls/hr DAILY IV 01/24/25 10:00 01/26/25 09:17 100 MLS/HR Metronidazole 100 ml @ 100 mls/hr Q8HR IV 01/23/25 22:00 01/26/25 06:20 100 MLS/HR Pantoprazole Sodium 40 mg DAILY IV 01/24/25 10:00 01/26/25 09:17 40 MG Ondansetron HCl 4 mg Q4HP PRN IV 01/23/25 17:15 01/24/25 17:46 4 MG Morphine Sulfate 2 mg Q4HPRN PRN IV 01/23/25 17:15 01/25/25 22:55 2 MG objective GEN: NAD ABD: surgical dressings clean and dry. laboratory and microbiology Laboratory Tests 01/26/25 05:20 01/25/25 05:57 Test 01/26/25 05:20 Range/Units Serum Glucose 73 L 74-106 mg/dL Assessment/Plan A: 1. s/p lap appendectomy POD #2 doing well. 2. ruptured left hemorrhagic ovarian cyst P: 1. stable from surgery POV 2. ok to get incisions wet. 3. f/u next week. call [phone] for fu appt. Plan discussed with: Patient JUAN PABLO HOPKINS MD Jan 26, 2025 15:49
--- NOTE | 2025-01-26 15:52 | DVHDS2 ---
Discharge Summary Date of Admission Jan 23, 2025 at 16:41 Date of Discharge: Jan 26, 2025 Labs/Diagnostic Data: Laboratory Results Test 01/26/25 05:20 01/25/25 05:57 01/24/25 05:22 01/23/25 20:07 Sodium Level 139 mmol/L (136-145) Potassium Level 3.5 mmol/L (3.5-5.1) Chloride Level 105 mmol/L (98-107) Carbon Dioxide Level 21 mmol/L (20-31) Anion Gap 13 (5-15) Blood Urea Nitrogen < 5 mg/dL (9-23) Creatinine 0.78 mg/dL (0.550-1.02) Glomerular Filtration Rate Calc 108 mL/min (>90) BUN/Creatinine Ratio 6.4 (10.0-20.0) Serum Glucose 73 mg/dL (74-106) Calcium Level 9.5 mg/dL (8.7-10.4) White Blood Count 6.4 10^3/uL (4.4-10.8) Red Blood Count 3.47 10^6/uL (4.0-5.20) Hemoglobin 10.7 g/dL (12.2-16.2) Hematocrit 31.7 % (36.0-46.0) Mean Corpuscular Volume 91.4 fL (80.0-100.0) Mean Corpuscular Hemoglobin 30.8 pg (28.0-32.0) Mean Corpuscular Hemoglobin Concent 33.7 g/dL (32.0-36.0) Red Cell Distribution Width 14.1 % (11.8-14.3) Platelet Count 324 10^3/uL (140-450) Mean Platelet Volume 8.1 fL (6.9-10.8) Neutrophils (%) (Auto) 62.4 % (37.0-80.0) Lymphocytes (%) (Auto) 21.7 % (10.0-50.0) Monocytes (%) (Auto) 13.0 % (0.0-12.0) Eosinophils (%) (Auto) 2.6 % (0.0-7.0) Basophils (%) (Auto) 0.3 % (0.0-2.0) Neutrophils # (Auto) 4.0 10 ^3/uL (1.6-8.6) Lymphocytes # (Auto) 1.4 10 ^3/uL (0.4-5.4) Monocytes # (Auto) 0.8 10 ^3/uL (0-1.3) Eosinophils # (Auto) 0.2 10 ^3/uL (0-0.8) Basophils # (Auto) 0 10 ^3/uL (0-0.2) Nucleated Red Blood Cells 0.1 % Total Bilirubin 0.2 mg/dL (0.2-1.0) Aspartate Amino Transferase (AST) 22 U/L (13-40) Alanine Aminotransferase (ALT) < 9 U/L (7-40) Alkaline Phosphatase 44 U/L (46-116) Total Protein 6.3 g/dL (5.7-8.2) Albumin 4.1 g/dL (3.2-4.8) Beta HCG, Quantitative < 1.5 mIU/mL (1.5-4.2) Urine Color Light-yellow (Yellow) Urine Clarity Clear (Clear) Urine pH 6.0 (5.0-9.0) Urine Specific [place] > 1.050 (1.001-1.035) Urine Protein Trace (Negative) Urine Ketones 4+ (Negative) Urine Blood 2+ /uL (Negative) Urine Nitrite Negative (Negative) Urine Bilirubin Negative (Negative) Urine Urobilinogen Normal mg/dL (Negative) Urine Leukocyte Esterase Negative /uL (Negative) Urine RBC <1 /hpf (0 - 4) Urine Microscopic WBC 4 /HPF (0-5) Urine Squamous Epithelial Cells Few /hpf (<5) Urine Bacteria None seen /hpf (None Seen) Urine Mucus Few (None Seen) Urine Glucose 1+ mg/dL (Normal) Test 01/23/25 15:44 Prothrombin Time 12.1 sec (9.3-11.8) Prothrombin Time INR 1.16 (0.9-1.15) Activated Partial Thromboplast Time 32.2 SEC (24.5-34.5) Lactic Acid Level 0.8 mmol/L (0.4-2.0) Lipase 24 U/L (12-53) Other Laboratory Tests 01/26/25 05:20 01/25/25 05:57 Brief Hx & Hospital Course: 25-year-old female presents for evaluation of abdominal pain. Patient was transferred from [facility] after she presented there with a two day history of abdominal pain which starts in her center abdomen and radiates to her right lower quadrant. CT of the abdomen from outside facility showed acute appendicitis therefore she was transferred for higher level of care and surgical consultation. She also reports episodes of nausea with vomiting and headache. Of fever or chills. No other acute complaints. 01/24- [facility] head found appendicitis. Patient is stabilized over here, surgery was consulted and patient was taken to OR today. She is postop day 0 today. When patient came in patient has tachycardia, low blood pressures meeting sepsis criteria per sepsis sulfa score 2. We will continue to control pain and defer diet orders to surgery. Continue IV antibiotics. 01/25: Patient doing well. No known from surgery yet, we will contact, if cleared we will likely DC today. 01/26: Patient is cleared by surgery, tolerating p.o., abdominal pain tolerable, bandages we will be removed today, okay to shower per surgery. Surgery wants patient to follow up outpatient. Patient is stable for discharge as per plan below. Diagnosis: Sepsis, sepsis 3 criteria, sofa score 2, due to below, resolved Acute appendicitis , SP laparoscopic appendectomy 01/24/2025 Acute intractable abdominal pain, requiring IV analgesia, resolved Left hemorrhagic cyst P.o. intolerance, resolved Tachycardia, resolved Hypotension Intravascular volume depletion Starvation ketosis Microscopic hematuria Anemia, normocytic Discharge plan: -Take Augmentin 875 mg twice daily for next 4 days -For pain take 1st line Tylenol OTC, second-line ibuprofen 400 up to twice daily as needed, 3rd line take prescribed Fitzgerald 5 mg up to 3 times daily - for nausea take Zofran ODT dissolvable tablet, up to 3 times daily as needed - recommend 1 week full liquid diet, can advance if tolerating well - follow up with surgery, [phone], set up an appointment for 1- 2 weeks to follow up with Dr. Livingston surgery - follow up with PCP for discharge review - continue other home medications not mentioned above Condition at Discharge: Fair Final Diagnosis/Problems List Diagnosis: Sepsis, sepsis 3 criteria, sofa score 2, due to below, resolved Acute appendicitis , SP laparoscopic appendectomy 01/24/2025 Acute intractable abdominal pain, requiring IV analgesia, resolved Left hemorrhagic cyst P.o. intolerance, resolved Tachycardia, resolved Hypotension Intravascular volume depletion Starvation ketosis Microscopic hematuria Anemia, normocytic Discharge Disposition: Home Discharge Instruct/Medications Diet: Regular Activity: No Restrictions, As Tolerated Follow Up/Referral: See below Medications: See below Scheduled Amoxicillin & Pot Clavulanate (Augmentin Tablet), 875 MG PO BID Scheduled PRN Hydrocodone-Acetaminophen (Hydrocodone Bitartrate/AC 5-325 mg), 1 TAB PO TIDP PRN Ondansetron Odt 4MG Tab (Zofran Po), 4 MG PO TIDP PRN Discharge Statement: "Patient was advised to return to the ER or call 911 if any headaches, dizziness, shortness of breath, chest pain, abdominal pain, bleeding, fevers, or worsening of medical condition. Patient was counseled about treatment plan, medications, possible side effects, patientverbalized understanding. All questions were answered to the best of my ability. This discharge took greater then 30 minutes in planning, reviewing documentation, counseling the patient, and discussing with other team members." Date of Service: Jan 26, 2025 Billing Provider: JOHN BOSCH MD Common Visit Codes: [id number] DISCH DAY >30min JOHN BOSCH MD Jan 26, 2025 15:52
== END 2025-01-26 17:45 | disposition home or self-care (01) | DRG 854 ==
LOC: EDBD 15:18 → ER 15:18 → OVERFLOW 16:41 → CENTRAL 21:05
PROVIDERS: ADMIT Student in an Organized Health Care Education/Training Program; ATTEND Student in an Organized Health Care Education/Training Program
PROC: 0DTJ4ZZ Resection of Appendix, Percutaneous Endoscopic Approach (ICD-10-PCS; principal; 2025-01-24 13:03)
DX: A41.9 Sepsis, unspecified organism (principal); K35.80 Unspecified acute appendicitis; D64.9 Anemia, unspecified; E86.9 Volume depletion, unspecified; E88.89 Other specified metabolic disorders; R31.29 Other microscopic hematuria; E16.2 Hypoglycemia, unspecified; N83.202 Unspecified ovarian cyst, left side; Z88.0 Allergy status to penicillin; Z88.1 Allergy status to other antibiotic agents; Z82.49 Family history of ischemic heart disease and other diseases of the circulatory system
CPT/HCPCS: 36415; 71045; 80048; 80053; 81001; 83605; 83690; 84702; 85025; 85610; 85730; 86850; 86900; 86901; 96365; G0378; J1956; J2003; J2250; J2405; J2470; J2704; J3490